=== PATIENT | male | born 1965 | race Caucasian/White ===

== ENCOUNTER → 2025-02-26 09:06 | Outpatient (BNVA) | payer OTHER, SELFPAY | PROVIDERS: Family Provider Nurse Practitioner; PCP Nurse Practitioner; Visit Provider Student in an Organized Health Care Education/Training Program | DX: Z12.11 Encounter for screening for malignant neoplasm of colon (principal) | CPT/HCPCS: 99204 ==

== ENCOUNTER 2025-03-18 09:07 | Day surgery (SDC) | payer OTHER, SELFPAY ==
[2025-03-18] VITALS (9 sets, daily range): BP systolic 106–134; BP diastolic 79–98; PULSE 56–85; RESP 16–18; TEMP 36.4–36.9; O2SAT 94–96; BMI 24.4
--- NOTE | 2025-03-18 09:37 | ANES.PREANE2 ---
Pre-Anesthetic Assessment Height/Weight: Height 1.85 m Weight 83.915 kg Temp Pulse Resp BP Pulse Ox O2 Del Method 97.5 F L 71 18 116/88 95 Room Air 03/18/25 09:21 03/18/25 09:21 03/18/25 09:21 03/18/25 09:21 03/18/25 09:21 03/18/25 09:21 Preop Diagnosis: Family history of colon cancer, screen Operation Date: 03/18/25 10:30 Proposed Procedures p Colonoscopy [id number] G0121 Z12.11(Not Applicable) - Marcus Jauregui MD Familial anesthetic complications: none Was Beta Jonh taken within 24 hours: N/A Was Clonidine taken within 24 hours: N/A Last intake: Intake Last Liquid Date 03/17/25 Last Liquid Time 23:00 Last Solid Date 03/16/25 Last Solid Time 22:00 Social Tobacco and No alcohol 0.5 pack(s) per day 10 pack years Exam alert, oriented x 3, clear to auscultation bilaterally and regular rate & rhythm Airway Cervical ROM: within normal limits Dentition: partials Pulmonary None reported smoker CV/HEM None reported None reported Hepatic None reported GI None reported Metabolic None reported Musc/skel None reported Neuropsych None reported Anesthetic Plan ASA status: 3 Anesthesia: MAC Risk of > 500 ml blood loss (7ml/kg in children): No Medications/Allergies Home Medications ?Medication ?Instructions ?Recorded ?Confirmed ?Last Taken ?Type hydroxyzine pamoate 25 mg capsule 25 mg PO TID anxiety 90 days #270 02/15/24 03/12/25 03/18/25 Rx caps lorazepam 0.5 mg tablet 0.5 mg sublingual BID PRN Anxiety 02/26/25 03/12/25 Unknown History olanzapine 5 mg tablet 5 mg PO BID 02/26/25 03/12/25 03/17/25 History ondansetron 8 mg disintegrating 8 mg PO Q8H PRN nausea and 02/26/25 03/18/25 03/17/25 Rx tablet vomiting #3 tabs venlafaxine 100 mg tablet 100 mg PO DAILY 02/26/25 03/12/25 03/17/25 History Allergies Allergy/AdvReac Type Severity Reaction Status Date / Time No Known Allergies Allergy Verified 03/12/25 11:04 Current Medications Generic Name Dose Route Start Last Admin Trade Name Yocasta PRN Reason Stop Dose Admin Sodium Chloride 1,000 mls @ 15 mls/hr 03/18/25 09:11 03/18/25 09:31 Sodium Chloride 0.9% IV 03/19/25 09:10 15 mls/hr .Q24H PRN Administration COLONOSCOPY FLUIDS PFSH Anesthesia Medical History History of anxiety Surgical History Hx of knee surgery right Hx of lithotripsy Family History Mother Cancer Social History Smoking and tobacco/nicotine status: former use of tobacco/nicotine Second hand smoke exposure: No Alcohol intake: never Substance/Drug Use: never Adopted: No Caregiver/support person: No Lives independently: Yes Household members: spouse Housing: House Marital status:
--- NOTE | 2025-03-18 10:02 | W.PM.OPSUD ---
Surgery/Procedure H&P Update DATE OF PROCEDURE: March 18, 2025 DATE H&P PERFORMED: 02/26/25 H&P UPDATE INFORMATION: I have reviewed H&P completed within last 30 days, I have examined patient prior to procedure and No changes to prior documentation PREOP DIAGNOSIS: Family history of colon cancer, screen PLANNED PROCEDURE: Operation Date: 03/18/25 10:30 Proposed Procedures p Colonoscopy [id number] G0121 Z12.11(Not Applicable) - Marcus Jauregui MD
--- NOTE | 2025-03-18 10:37 | SUR.OPER ---
[facility] time [id number]
--- NOTE | 2025-03-18 12:51 | SUR.PHASEII ---
Pt lung sounds clear anterior and posterior bilaterally. Pt states coughing phlegm is normal for him. Per Daniella ACTIVE DIRECTORY ARCHITECT no CXR necessary, Daniella checked back with pt prior to discharge and instructed this nurse to discharge pt after monitoring for 1.5 hours. Vitals charted. Discussed aspiration information and provided handout upon discharge, pt and voiced understanding of instructions.
== END 2025-03-18 12:15 | disposition home or self-care (01) ==
PROVIDERS: PCP Nurse Practitioner; Visit Provider Student in an Organized Health Care Education/Training Program
PROC: 0DJD8ZZ Inspection of Lower Intestinal Tract, Via Natural or Artificial Opening Endoscopic (ICD-10-PCS; CPT 45378; principal; 2025-03-18 10:30)
DX: Z12.11 Encounter for screening for malignant neoplasm of colon (principal); D12.4 Benign neoplasm of descending colon; F41.9 Anxiety disorder, unspecified; Z87.891 Personal history of nicotine dependence; Z80.0 Family history of malignant neoplasm of digestive organs
CPT/HCPCS: 45385; 88305; J0330; J2704; J7030

== ENCOUNTER → 2025-04-09 08:06 | Outpatient (BNVA) | payer OTHER, SELFPAY | PROVIDERS: PCP Nurse Practitioner; Visit Provider Student in an Organized Health Care Education/Training Program | DX: Z09 Encounter for follow-up examination after completed treatment for conditions other than malignant neoplasm (principal) | CPT/HCPCS: 99213 ==